=== PATIENT | male | born 1980 | race Caucasian/White ===

== ENCOUNTER 2017-02-24 16:46 | Emergency (ER) | payer OTHER ==
[~2017-02-24] VITALS: Ht 182.9 cm; Wt 74.8 kg
--- NOTE | ~2017-02-24 | EKG ---
[address] [place] [address] ELECTROCARDIOGRAM REPORT Name: AARON KENNEDY Room #: [facility] [id number] Admission: 02/24/17 Attend Phys: Discharge: 02/24/17 Date of : 78 Report #: [id number] THIS REPORT FOR: //name// [facility] ED Test Date: 2017-02-24 Test Time: 17:00:16 Pat Name: AARON KENNEDY Department: Room: Gender: Flight Teacher: Karina THORNTON : 1980 Requested By: Luis Alberto Wilson Order Number: [id number] MD: Reyes Chao Measurements Intervals [place] Rate: 103 P: 79 MD: 134 QRS: 82 QRSD: 90 T: 15 QT: 358 QTc: 469 Interpretive Statements Sinus tachycardia Consider left ventricular hypertrophy No previous ECG available for comparison Electronically Signed On 02-25-2017 20:05:37 CDT by Reyes Chao [email or web address] <ELECTRONICALLY SIGNED> By: Reyes Chao MD 02/25/172004 99 MD SABINO Sargent
[2017-02-24 17:24] LABS: ABSOLUTE NEUTROPHILS 13.3 thou/uL (1.4-8.2); BASOPHILS 0.4 % (0.0-2.0); EOSINOPHILS 0.9 % (0.0-3.0); HEMATOCRIT 45.8 % (42.0-52.0); LYMPHOCYTES 12.8 % (24.0-44.0); MANUAL DIFF NO; MCH 28.9 pg (26.0-34.0); MCV 82.6 fL (80.0-100.0); MONOCYTES 6.7 % (1.0-8.0); PLATELET COUNT 190 thou/uL (150-400); POLYS 79.2 % (36.0-66.0); RBC 5.54 mil/uL (4.50-6.00); RDW 13.5 % (10.5-14.5); WBC 16.8 thou/uL (4.0-11.0)
[2017-02-24 17:36] LABS: ANION GAP 10 mmol/L (7-16); BUN 12 mg/dL (7-18); CALCIUM 9.2 mg/dL (8.5-10.1); CHLORIDE 104 mmol/L (98-107); CO2 22 mmol/L (21-32); CREATININE 1.2 mg/dL (0.6-1.3); GLUCOSE 102 mg/dL (70-99); POTASSIUM 3.7 mmol/L (3.5-5.1); SODIUM 136 mmol/L (136-145)
[2017-02-24 17:43] LABS: ALKALINE PHOSPHATASE 88 U/L (46-116); SGOT 16 U/L (15-37); SGPT 23 U/L (30-65); TOTAL BILIRUBIN 0.8 mg/dL (<0.1-1.0); TOTAL PROTEIN 7.5 g/dL (6.4-8.2); TROPONIN-I < 0.04 ng/mL (<0.04-0.07)
[2017-02-24] MEDS ORDERED: PRILOSEC OTC20 MG PO (18:18)
[2017-02-24 18:19] LABS: AMP/METHAMP POSITIVE (Negative); BARBITURATES Negative (Negative); BENZODIAZEPINES Negative (Negative); COCAINE Negative (Negative); METHADONE Negative (Negative); OPIATES Negative (Negative); PCP Negative (Negative); THC Negative (Negative)
[2017-02-24] MEDS ORDERED: XANAX1 MG PO (18:49)
[2017-02-24 20:41] VITALS: BP 132/78
== END 2017-02-24 20:42 | disposition home or self-care (01) ==
LOC: ER 16:46
PROVIDERS: Physician Assistant
DX: F41.9 Anxiety disorder, unspecified (principal); R07.9 Chest pain, unspecified; F15.10 Other stimulant abuse, uncomplicated; Z71.6 Tobacco abuse counseling

== ENCOUNTER 2017-04-13 05:58 | Emergency (ER) | payer OTHER ==
[~2017-04-13] VITALS: Ht 182.9 cm; Wt 70.3 kg
[~2017-04-13 05:58] MED LIST: PRILOSEC OTC20 MG PO; XANAX1 MG PO
[2017-04-13 07:11] LABS: HEMATOCRIT 44.9 % (42.0-52.0); HEMOGLOBIN 15.9 gm/dL (14.0-18.0); MCH 29.1 pg (26.0-34.0); MCHC 35.3 g/dL (28.0-37.0); MCV 82.5 fL (80.0-100.0); RBC 5.45 mil/uL (4.50-6.00); RDW 14.2 % (10.5-14.5); WBC 16.6 thou/uL (4.0-11.0)
[2017-04-13 07:19] LABS: CALCIUM 8.9 mg/dL (8.5-10.1); CREATININE 1.1 mg/dL (0.7-1.3); POTASSIUM 3.9 mmol/L (3.5-5.1)
[2017-04-13 07:28] LABS: AMP/METHAMP POSITIVE (Negative); BARBITURATES Negative (Negative); BENZODIAZEPINES Negative (Negative); COCAINE Negative (Negative); METHADONE Negative (Negative); OPIATES Negative (Negative); PCP Negative (Negative); THC Negative (Negative)
[2017-04-13 08:46] VITALS: BP 115/69
== END 2017-04-13 08:48 | disposition home or self-care (01) ==
LOC: ER 05:58
PROVIDERS: Emergency Medicine
DX: F15.10 Other stimulant abuse, uncomplicated (principal); F17.210 Nicotine dependence, cigarettes, uncomplicated; J42 Unspecified chronic bronchitis

== ENCOUNTER 2017-07-01 02:17 | Emergency (ER) | payer OTHER | END 2017-07-01 02:39 | disposition left against medical advice (07) | LOC: ER 02:17 | DX: Z53.21 Procedure and treatment not carried out due to patient leaving prior to being seen by health care provider (principal) ==